=== PATIENT | male | born 1960 | race African-American/Black ===

== ENCOUNTER 2017-11-22 21:20 | Inpatient (IN) | payer OTHER ==
[2017-11-22] MEDS ORDERED: ONDANSETRON PF 4 MG/2 ML VIAL. IV (22:15)
[2017-11-22] MEDS ORDERED: MORPHINE SULFATE 2 MG/ML DISP.SYRIN. IV (22:15)
[2017-11-22] MEDS ORDERED: ACETAMINOPHEN 650 MG/20.3 ML SOLUTION. PO (22:15)
[2017-11-22] MEDS: IV NORMAL SALINE 1000ML BAG 1,000 ML IV (22:22)
[2017-11-23 04:42] LABS: ADD MAN DIFF? NO
[2017-11-23 04:45] LABS: BASO % 1 % (0-3); EOS # 0.1 x10^3/uL (0.0-0.7); EOS % 1 % (0-3); HEMATOCRIT 39.6 % (39.0-53.0); HEMOGLOBIN 13.5 g/dL (13.0-17.5); LYMPH # 1.7 x10^3/uL (1.0-4.8); LYMPH % 33 % (24-48); MEAN CORPUSCULAR HEMOGLOBIN 28 pg (25-35); MEAN CORPUSCULAR HGB CONC 34 g/dL (31-37); MEAN CORPUSCULAR VOLUME 82 fL (79-100); MONO # 0.5 x10^3/uL (0.0-1.1); MONO % 9 % (0-9); NEUT # 2.9 x10^3uL (1.8-7.7); NEUT % 56 % (31-73); PLATELET COUNT 198 x10^3/uL (140-400); RED BLOOD COUNT 4.82 x10^6/uL (4.30-5.70); RED CELL DISTRIBUTION WIDTH 13.7 % (11.5-14.5); WHITE BLOOD COUNT 5.2 x10^3/uL (4.0-11.0)
[2017-11-23 05:13] LABS: INR 1.1 (0.8-1.1); PROTHROMBIN TIME PATIENT 14.1 SEC (11.7-14.0)
[2017-11-23 05:20] LABS: ALBUMIN 3.2 g/dL (3.4-5.0); ALK PHOS 54 U/L (46-116); ALT (SGPT) 17 U/L (16-63); ANION GAP 5 (6-14); AST (SGOT) 13 U/L (15-37); BLOOD UREA NITROGEN 8 mg/dL (8-26); BUN/CREATININE RATIO 7 (6-20); CALCIUM 8.3 mg/dL (8.5-10.1); CARBON DIOXIDE 29 mmol/L (21-32); CHLORIDE 106 mmol/L (98-107); CREATININE 1.1 mg/dL (0.7-1.3); GFR 82.9; GLUCOSE 88 mg/dL (70-99); POTASSIUM 3.7 mmol/L (3.5-5.1); SODIUM 140 mmol/L (136-145); TOTAL BILIRUBIN 0.8 mg/dL (0.2-1.0); TOTAL PROTEIN 6.5 g/dL (6.4-8.2)
[2017-11-23] MEDS: IV RINGERS,LACTATED 1000ML 1,000 ML IV (07:20)
[2017-11-23] MEDS ORDERED: LIDOCAINE 1% PF 2 ML VIAL. ID (07:30)
[2017-11-23] MEDS ORDERED: fentaNYL PF VIAL 100 MCG/2 ML VIAL IV ×2 (07:30)
[2017-11-23] MEDS ORDERED: MIDAZOLAM HCL/PF 2 MG/2 ML VIAL. IV (07:30)
[2017-11-23] MEDS ORDERED: PROPOFOL 20 ML IV (08:31)
[2017-11-23] MEDS ORDERED: LIDO:MAALOX 1:1 20 ML SINGLE DOSE. PO (09:15)
[2017-11-23] MEDS: FLUCONAZOLE 100MG/50ML PREMIX 50 ML IV (10:16)
[2017-11-23] MEDS: PANTOPRAZOLE IV PUSH 40 MG VIAL. IVP (10:16)
[2017-11-23] MEDS: IV NORMAL SALINE 1000ML BAG 1,000 ML IV (10:16)
[2017-11-25] MEDS ORDERED: FLUCONAZOLE 100 MG TABLET. PO (09:00)
== END 2017-11-23 15:01 | disposition home or self-care (01) | DRG 369 ==
LOC: 5 SOUTH 21:20
PROC: 0DB38ZX Excision of Lower Esophagus, Via Natural or Artificial Opening Endoscopic, Diagnostic (ICD-10-PCS; principal; 2017-11-23 08:30)
PROC: 0D758ZZ Dilation of Esophagus, Via Natural or Artificial Opening Endoscopic (ICD-10-PCS; 2017-11-23 08:30)
PROC: 0DB18ZX Excision of Upper Esophagus, Via Natural or Artificial Opening Endoscopic, Diagnostic (ICD-10-PCS; 2017-11-23 08:30)
DX: B37.81 Candidal esophagitis (principal); K22.10 Ulcer of esophagus without bleeding; K21.0 Gastro-esophageal reflux disease with esophagitis; I10 Essential (primary) hypertension; Z82.49 Family history of ischemic heart disease and other diseases of the circulatory system
CPT/HCPCS: 36415; 80053; 85025; 85610; 88305; 88312; C9113; J1450; J2704; J7030; J7120